=== PATIENT | male | born 1935 | race Caucasian/White ===

== ENCOUNTER 2021-06-21 06:56 | Inpatient (IN) ==
[2021-06-15 13:30] LABS: Basophils # 0.1 10*3/uL (0.0-0.2); Basophils % 0.9 % (0.0-0.8); Eosinophils # 0.5 10*3/uL (0.0-0.87); Eosinophils % 9.6 % (0.00-10.9); Hematocrit 40.3 VOL% (42.0-52.0); Hemoglobin 12.8 GM/DL (14.0-18.0); Immature Granulocytes % 0.5 %; Immature Granulocytes Absolute 0.03 #; Lymphocytes # 1.8 10*3/uL (1.4-4.0); Lymphocytes % 32.5 % (21.2-54.2); Mean Corpuscular HGB Conc 31.8 GM/DL (32-36); Mean Corpuscular Volume 99.5 FL (87-102); Mean Platelet Volume 10.4 FL (9.6-12.0); Monocytes % 11.4 % (1.7-12.7); Neutrophils % 45.1 % (38.7-73.9); Platelet Count 191 T/CUMM (130-400); Red Blood Count 4.05 MC/CUMM (3.8-5.5); Red Cell Distribution Width 13.3 % (9.3-17.3); White Blood Count 5.5 T/CUMM (4-12)
[2021-06-15 13:44] LABS: PT Patient Result 10.9 SECS (10.5-12.0)
[2021-06-15 14:02] LABS: Albumin 3.5 G/DL (3.4-5.0); Bilirubin,Total 1.3 MG/DL (0.20-1.00); Calcium 9.1 MG/DL (8.5-10.1); Osmolality,Calculated 288.7 MOS/KG (273-304); Potassium 4.7 MMOL/L (3.5-5.1); Total Protein 6.9 G/DL (6.4-8.2)
[2021-06-21] MEDS ORDERED: SUCCINYLCHOLINE 200 MG/10 ML VIAL ONE (07:23)
[2021-06-21] MEDS ORDERED: fentaNYL 100 MCG/2 ML VIAL ONE (07:23)
[2021-06-21] MEDS ORDERED: LIDOCAINE 2% 5 ML VIAL ONE (07:23)
[2021-06-21] MEDS ORDERED: ROCURONIUM 50 MG/5 ML VIAL IV ONE (07:23)
[2021-06-21] MEDS ORDERED: SEVOFLURANE 1 UNIT/15 MINUTE INH ONE ×2 (07:23→10:41)
[2021-06-21] MEDS ORDERED: HEPARIN 10,000 UNIT/10 ML VIAL ONE (07:23)
[2021-06-21] MEDS ORDERED: propofoL 200 MG/20 ML VIAL IV ONE (07:23)
[2021-06-21] MEDS ORDERED: MIDAZOLAM 2 MG/2 ML VIAL ONE (07:23)
[2021-06-21] MEDS ORDERED: SODIUM CHLORIDE 0.9% 250 ML IV ONE (07:24)
[2021-06-21] MEDS ORDERED: PHENYLEPHRINE 10 MG/1 ML VIAL IV ONE (07:24)
[2021-06-21] MEDS ORDERED: HEPARIN/NACL 0.9% 2 UNITS/ML 1,000 UNIT/500 ML BAG IV ONE (07:36)
[2021-06-21] MEDS ORDERED: LIDOCAINE 1% 5 ML VIAL ONE ×2 (07:50→08:17)
[2021-06-21] MEDS ORDERED: ROPIVACAINE 0.5% 30 ML VIAL ONE (07:50)
[2021-06-21] MEDS ORDERED: HEPARIN 5,000 UNIT/1 ML VIAL ONE (08:16)
[2021-06-21] MEDS ORDERED: LACTATED RINGERS 1,000 ML IV SCH (08:30)
[2021-06-21] MEDS ORDERED: ePHEDrine 50 MG/ML VIAL ONE (09:14)
[2021-06-21] MEDS ORDERED: ACETAMINOPHEN INJ 1,000 MG/100 ML VIAL IV ONE (09:57)
[2021-06-21] MEDS ORDERED: LACTATED RINGERS 1,000 ML IV ONE (09:57)
[2021-06-21] MEDS ORDERED: GLUCAGON 1 MG VIAL IM PRN (10:24)
[2021-06-21] MEDS ORDERED: oxyCODONE/ACETAMINOPHEN 5-325 MG TABLET PO PRN ×2 (10:24)
[2021-06-21] MEDS ORDERED: DEXTROSE 50% 25 GM/50 ML SYRINGE IV PRN (10:24)
[2021-06-21] MEDS ORDERED: HYDROmorphone 2 MG/1 ML VIAL IV PRN ×2 (10:24)
[2021-06-21] MEDS ORDERED: NALOXONE 0.4 MG/ML VIAL IV PRN (10:24)
[2021-06-21] MEDS ORDERED: ONDANSETRON 4 MG/2 ML VIAL IV PRN (10:24)
[2021-06-21] MEDS ORDERED: PROMETHAZINE 25 MG/1 ML VIAL IM PRN (10:24)
[2021-06-21] MEDS ORDERED: PHENYLEPHRINE DRIP 40 MG/250 ML PREMIX IV SCH (10:30)
[2021-06-21] MEDS ORDERED: NITROPRUSSIDE 100 MG in DEXTROSE 5% 250 ML IV SCH (10:30)
[2021-06-21 11:29] VITALS: BP 112/50
[2021-06-21] MEDS: LACTATED RINGERS 1,000 ML IV SCH ×3 (11:39→19:46)
[2021-06-21] MEDS: gemfibroziL 600 MG TABLET PO SCH (16:33)
[2021-06-21] MEDS: TAMSULOSIN 0.4 MG CAPSULE PO SCH (20:42)
[2021-06-22] MEDS: LACTATED RINGERS 1,000 ML IV SCH (05:49)
[2021-06-22] MEDS: gemfibroziL 600 MG TABLET PO SCH (06:36)
[2021-06-22] MEDS: TAMSULOSIN 0.4 MG CAPSULE PO SCH (08:47)
[2021-06-22] MEDS ORDERED: CLOPIDOGREL 75 MG TABLET PO SCH ×2 (09:00)
[2021-06-22] MEDS ORDERED: amLODIPine 10 MG TABLET PO SCH (09:00)
[2021-06-22] MEDS ORDERED: ASPIRIN EC 81 MG TABLET PO SCH ×2 (09:00)
[2021-06-22] MEDS ORDERED: LOSARTAN 50 MG TABLET PO SCH (09:00)
[2021-06-22] MEDS ORDERED: PANTOPRAZOLE 40 MG TABLET PO SCH (09:00)
[2021-06-22] MEDS ORDERED: POTASSIUM CHLORIDE 10 MEQ TABLET PO SCH (09:00)
== END 2021-06-22 13:20 | disposition home or self-care (01) | DRG 38 ==
LOC: N.OR 06:56 → N.SDSINP 06:58 → EDSTATUS 08:45 → N.SDSINP 10:24 → N.ICU 11:19
PROVIDERS: ADMIT Surgery; ATTEND Surgery